=== PATIENT | female | born 1990 | race Caucasian/White ===

== ENCOUNTER 2023-03-16 13:49 | Emergency (ER) | payer OTHER ==
[~2023-03-16] VITALS: Ht 165.1 cm; Wt 81.6 kg
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
--- NOTE | 2023-03-16 14:30 | NUR ---
DR ARROYO AT BEDSIDE FOR EVAL
[2023-03-16] MEDS ORDERED: ONDANSETRON 4 MG TAB.RAPDIS ONE (14:50)
[2023-03-16] MEDS ORDERED: ACETAMINOPHEN ES 500 MG TABLET ONE (14:50)
[2023-03-16] MEDS ORDERED: TDAP [DIPH/PERTUSSIS/TET] 0.5 ML VIAL IM ONE ×2 (14:50→15:00)
--- NOTE | 2023-03-16 14:51 | NUR ---
PT TAKEN TO CT [facility]IA [facility]
[2023-03-16] MEDS ORDERED: ACETAMINOPHEN 325 MG TABLET PO ONE (15:00)
[2023-03-16] MEDS ORDERED: ONDANSETRON 4 MG TAB.RAPDIS SL ONE (15:00)
--- NOTE | 2023-03-16 15:00 | NUR ---
PT RETURNED FROM CT [facility]IA [facility]
[2023-03-16] MEDS ORDERED: ONDA4TAB5 PO (15:14)
[2023-03-16] MEDS ORDERED: TYL2T PO (15:14)
--- NOTE | 2023-03-16 15:22 | NUR ---
Patient discharged to home in stable condition. Written and verbal after care instructions given. Patient verbalizes understanding of instruction.
[2023-03-16 15:24] VITALS: BP 145/86
== END 2023-03-16 15:25 | disposition home or self-care (01) ==
LOC: ER 13:51
DX: S06.0X0A Concussion without loss of consciousness, initial encounter (principal); V89.2XXA Person injured in unspecified motor-vehicle accident, traffic, initial encounter; Y93.89 Activity, other specified; Y92.89 Other specified places as the place of occurrence of the external cause; Y99.8 Other external cause status
CPT/HCPCS: 99285; 70450; 90471; 90715; Q0162